=== PATIENT | female | born 1995 | race Caucasian/White ===

== ENCOUNTER 2020-06-05 04:32 | Emergency (ER) | payer OTHER | END 2020-06-05 06:28 | disposition other institution (70) | LOC: ED 04:32 | DX: Z02.89 Encounter for other administrative examinations (principal) ==

== ENCOUNTER 2020-06-05 04:32 | Emergency (ER) | payer OTHER ==
[~2020-06-05] VITALS: Ht 170.2 cm; Wt 90.7 kg
[2020-06-05 04:40] VITALS: Ht 170.2 cm; Wt 90.7 kg
[2020-06-05 06:28] VITALS: BP 120/69
== END 2020-06-05 06:28 | disposition other institution (70) ==
LOC: ED 04:32
DX: S43.401A Unspecified sprain of right shoulder joint, initial encounter (principal); S09.90XA Unspecified injury of head, initial encounter; L03.116 Cellulitis of left lower limb; Y04.8XXA Assault by other bodily force, initial encounter; Y93.89 Activity, other specified; Y92.89 Other specified places as the place of occurrence of the external cause; Y99.8 Other external cause status
CPT/HCPCS: Q0092